=== PATIENT | female | born 1990 | race Caucasian/White ===

== ENCOUNTER 2017-12-19 07:10 | Inpatient (IN) | payer MEDICAID ==
[~2017-12-19] VITALS: Ht 170.2 cm; Wt 74.8 kg
[2017-12-19] MEDS ORDERED: SODIUM CHLORIDE 0.9% 1,000 ML IV ONE (07:33)
[2017-12-19] MEDS ORDERED: MORPHINE SULFATE 4 MG/ML CPJ (NOT FOR IM USE) IV ONE (07:45)
[2017-12-19] MEDS ORDERED: ONDANSETRON HCL 4MG/2ML INJ IV ONE (07:45)
[2017-12-19] MEDS ORDERED: DEXT 5%/LR + PITOCIN 20UNITS/L 1,000 ML IV ONE (08:30)
[2017-12-19 08:40] LABS: HEMOGLOBIN. 10.7 g/dL (12.0-16.0); MEAN CORPUSCULAR HEMOGLOBIN 31.8 pg (28.0-32.0); MEAN CORPUSCULAR VOLUME 94.9 fL (81.0-99.0); MEAN PLATELET VOLUME 9.6 fl (7.4-10.4); PLATELET 208 x1000/uL (130-400); RED BLOOD CELL COUNT 3.37 mill/uL (4.2-5.4); RED CELL DISTRIBUTION WIDTH 14.4 % (11.6-14.6)
[2017-12-19 08:47] LABS: CHLORIDE 107 mEq/L (98-107)
[2017-12-19 09:12] LABS: B-HCG QUANTITATIVE 7270 mIU/mL (<3)
[2017-12-19 09:34] LABS: PLATELET ESTIMATE NORMAL
[2017-12-19] MEDS ORDERED: MISOPROSTOL 200MCG TABLET RC ONE (11:45)
[2017-12-19 12:00] VITALS: BP 112/43
[2017-12-19] MEDS ORDERED: MISOPROSTOL 200MCG TABLET RC NR (12:00)
[2017-12-19 14:40] VITALS: BP 112/43
[2017-12-19 16:00] VITALS: BP 104/57
[2017-12-19 16:52] VITALS: BP 112/43
== END 2017-12-19 17:40 | disposition home or self-care (01) | DRG 564 ==
LOC: ER 07:10 → 6EST 11:34 → ENRESERV 13:10
PROVIDERS: ADMIT Obstetrics & Gynecology; ATTEND Obstetrics & Gynecology
DX: O03.4 Incomplete spontaneous abortion without complication (principal); Z3A.16 16 weeks gestation of pregnancy
CPT/HCPCS: 36415; 76856; 82962; 84702; 86886; 88309; 96365; 96366; 96375; 99291; J2270; J2405; J2590; J7030